=== PATIENT | male | born 1930 | race Caucasian/White ===

== ENCOUNTER 2018-11-22 08:27 | Day surgery (SDC) | payer MEDICARE, BC ==
[2018-11-22] MEDS ORDERED: fentaNYL 100 MCG/2 ML SDV IV ONE (08:28)
[2018-11-22] MEDS ORDERED: Midazolam 1 MG/ML 2 ML SDV IV ONE (08:28)
[2018-11-22] MEDS ORDERED: Lactated Ringers 1,000 ML IV PRN (08:30)
[2018-11-22] MEDS ORDERED: Sodium Chloride 0.9% 10 ML Syringe FLUSH PRN (08:30)
[2018-11-22 11:26] VITALS: BP 122/58; PULSE 58
--- NOTE | 2018-11-23 09:05 | OR ---
DATE OF OPERATION: 11/22/2018 SURGEON: Barby Ashraf MD PREOPERATIVE DIAGNOSIS: Visually significant cataract, left eye. POSTOPERATIVE DIAGNOSIS: Visually significant cataract, left eye. PROCEDURES PERFORMED: Phacoemulsification with intraocular lens placement, left eye. ASSISTANTS: None. ANESTHESIA: Local with sedation. COMPLICATIONS: None. BLOOD LOSS: None. IMPLANTS: Speedy AU00T0 21.0 diopter lens, serial number [id number], implanted. CDE: 5.04. DESCRIPTION OF PROCEDURE: After risks and benefits were reviewed with the patient, consent was obtained in the preoperative area, and the operative eye was marked with a surgical pen. In the preoperative area, a pledget was used to dilate the pupil consisting of a mixture of phenylephrine 10%, cyclopentolate 2%, moxifloxacin 0.5%, and bupivacaine 0.75%. The patient was taken to the operating room, where a time-out was performed, and the patient was placed under monitored anesthesia care. Topical tetracaine was used for anesthesia. The operative eye was prepped and draped for ophthalmic surgery, and the microscope was brought into position and focussed. A paracentesis incision was made, followed by injection of preservative-free 1% lidocaine into the anterior chamber, followed by injection of Viscoat into the anterior chamber. A microkeratome blade was used to make a corneal limbal incision temporarily. A cystotome was used to make the beginning of the capsulorrhexis, which was carried around 360 degrees in a curvilinear fashion using Utrata forceps. A Gonzales cannula with BSS was used to hydrodissect and hydrodelineate the nucleus. The nucleus was removed in a divide and conquer manner using phacoemulsification. Irrigation and aspiration were used to remove the remaining cortical material. Provisc was used to inflate the capsular bag, and a pre-loaded Speedy AU00T0 21.0 diopter lens, serial number [id number], was injected into the capsular bag. A Sinskey hook was used to position and center the lens. Next, irrigation and aspiration was used to remove any remaining viscoelastic and cortical material from the anterior chamber. BSS on a cannula was used to inflate the anterior chamber and hydrate the wound. The wound was checked and found to be watertight. 1 mg of Moxifloxacin was injected into the anterior chamber. Drapes were removed and the eye was cleaned. A drop of brimonidine 0.15% and a drop of TobraDex was placed. The eye was shielded, and the patient was taken to the recovery room in stable condition. /[id number] TERRENCE/ALEJANDRINA CC: RHODA RAMACHANDRAN PA-C MTDD
== END 2018-11-22 11:50 | disposition home or self-care (01) ==
LOC: FB.SDS 08:27
PROVIDERS: ATTEND Ophthalmology
DX: H25.9 Unspecified age-related cataract (principal); I11.0 Hypertensive heart disease with heart failure; I50.32 Chronic diastolic (congestive) heart failure; M19.90 Unspecified osteoarthritis, unspecified site; E78.5 Hyperlipidemia, unspecified; I25.118 Atherosclerotic heart disease of native coronary artery with other forms of angina pectoris; E66.9 Obesity, unspecified; Z79.899 Other long term (current) drug therapy; Z79.82 Long term (current) use of aspirin; Z88.6 Allergy status to analgesic agent; Z88.1 Allergy status to other antibiotic agents; Z87.891 Personal history of nicotine dependence; Z68.30 Body mass index [BMI] 30.0-30.9, adult
CPT/HCPCS: 00142; 66984; J2250; J3010; V2632

== ENCOUNTER 2018-12-20 06:57 | Day surgery (SDC) | payer MEDICARE, BC ==
[2018-12-20] MEDS ORDERED: fentaNYL 100 MCG/2 ML SDV IV ONE (06:58)
[2018-12-20] MEDS ORDERED: Ondansetron 4 MG/2 ML SDV IVPUSH ONE (06:58)
[2018-12-20] MEDS ORDERED: Sodium Chloride 0.9% 10 ML Syringe IV ONE (06:58)
[2018-12-20] MEDS ORDERED: Midazolam 1 MG/ML 2 ML SDV IV ONE (06:58)
[2018-12-20] MEDS: Sodium Chloride 0.9% 10 ML Syringe FLUSH PRN (07:35)
[2018-12-20 15:35] VITALS: BP 132/60; PULSE 58
--- NOTE | 2018-12-21 11:14 | OR ---
DATE OF OPERATION: 12/20/2018 SURGEON: Barby Ashraf MD PREOPERATIVE DIAGNOSIS: Visually significant cataract, right eye. POSTOPERATIVE DIAGNOSIS: Visually significant cataract, right eye. PROCEDURES PERFORMED: Phacoemulsification with intraocular lens placement, right eye. ASSISTANTS: None. ANESTHESIA: Local with sedation. COMPLICATIONS: None. BLOOD LOSS: None. IMPLANTS: Speedy AU00T0, 20.5 diopter lens implanted. CDE: 2.14. DESCRIPTION OF PROCEDURE: After risks and benefits were reviewed with the patient, consent was obtained in the preoperative area, and the operative eye was marked with a surgical pen. In the preoperative area, a pledget was used to dilate the pupil consisting of a mixture of phenylephrine 10%, cyclopentolate 2%, moxifloxacin 0.5%, and bupivacaine 0.75%. The patient was taken to the operating room, where a time-out was performed, and the patient was placed under monitored anesthesia care. Topical tetracaine was used for anesthesia. The operative eye was prepped and draped for ophthalmic surgery, and the microscope was brought into position and focussed. A paracentesis incision was made, followed by injection of preservative-free 1% lidocaine into the anterior chamber, followed by injection of Viscoat into the anterior chamber. A microkeratome blade was used to make a corneal limbal incision temporarily. A cystotome was used to make the beginning of the capsulorrhexis, which was carried around 360 degrees in a curvilinear fashion using Utrata forceps. A Gonzales cannula with BSS was used to hydrodissect and hydrodelineate the nucleus. The nucleus was removed in a divide and conquer manner using phacoemulsification. Irrigation and aspiration were used to remove the remaining cortical material. Provisc was used to inflate the capsular bag, and a pre-loaded Speedy AU00T0, 20.5 diopter lens, serial number [id number] was injected into the capsular bag. A Sinskey hook was used to position and center the lens. Next, irrigation and aspiration was used to remove any remaining viscoelastic and cortical material from the anterior chamber. BSS on a cannula was used to inflate the anterior chamber and hydrate the wound. The wound was checked and found to be watertight. 1 mg of Moxifloxacin was injected into the anterior chamber. Drapes were removed and the eye was cleaned. A drop of brimonidine 0.15% and a drop of TobraDex was placed. The eye was shielded, and the patient was taken to the recovery room in stable condition. /[id number] TERRENCE/JAYDENL CC: RHODA RAMACHANDRAN MD MTDD
== END 2018-12-20 09:36 | disposition home or self-care (01) ==
LOC: FB.SDS 06:57
PROVIDERS: ATTEND Ophthalmology
DX: H25.9 Unspecified age-related cataract (principal); I25.119 Atherosclerotic heart disease of native coronary artery with unspecified angina pectoris; I11.0 Hypertensive heart disease with heart failure; I50.9 Heart failure, unspecified; M19.90 Unspecified osteoarthritis, unspecified site; E78.5 Hyperlipidemia, unspecified; E66.9 Obesity, unspecified; Z68.30 Body mass index [BMI] 30.0-30.9, adult; Z88.1 Allergy status to other antibiotic agents; Z88.6 Allergy status to analgesic agent; Z79.899 Other long term (current) drug therapy; Z79.82 Long term (current) use of aspirin; Z79.51 Long term (current) use of inhaled steroids
CPT/HCPCS: 66984; J2250; J2405; J3010; V2632

== ENCOUNTER 2019-05-10 07:07 | Day surgery (SDC) | payer MEDICARE, BC ==
[~2019-05-10 07:07] MED LIST: Lactated Ringers 1,000 ML IV SCH
[2019-05-10] MEDS ORDERED: Lidocaine 2% 5 ML SDV INJECT ONE (07:08)
[2019-05-10] MEDS ORDERED: Propofol 200 MG/20 ML SDV IV ONE (07:08)
--- NOTE | 2019-05-10 09:34 | PCM.OPNOTE ---
- General Post-Op/Procedure Note Date of Surgery/Procedure: 05/10/19 Operative Procedure(s): 1. egd with cold forcep biopsy. 2. c scope with cold forcep biopsy Findings: 1. gastritis 2. diverticulosis of colon 3. colon polyp 3 ascending polyp 5 descending colon Pre Op Diagnosis: occult blood in stools Post-Op Diagnosis: 1. gastritis. 2. diverticulosis of colon. 3. colon polyp 3 ascending. polyp 5 descending colon Anesthesia Technique: [facility] Primary Surgeon: Immanuel Claros Anesthesia Provider: Kavya Rodas Pathology: stomach colon polyp 3 ascending polyp 5 descending colon Complications: None Condition: Good Free Text/Narrative:: see dictation
[2019-05-10 10:04] VITALS: BP 148/58; PULSE 51
--- NOTE | 2019-05-10 12:09 | OR ---
DATE OF OPERATION: 05/10/2019 SURGEON: Immanuel Claros MD PROCEDURE PERFORMED: Colonoscopy and upper endoscopy with cold forceps biopsy for both. PREOPERATIVE DIAGNOSIS: Occult blood in stools, history of melena. POSTOPERATIVE DIAGNOSES: Gastritis, ascending colon polyps x3 and descending colon polyps x5, as well as diffuse diverticulosis of the colon without obstruction or hemorrhage. INDICATIONS FOR PROCEDURE: This is an 88-year-old white male who was referred with the above noted issue of some occult blood in stool. On taking the patient's history, last summer he did have an episode of melena which spontaneously resolved. He is completely asymptomatic and essentially was offered and accepted an upper and lower endoscopy. DESCRIPTION OF OPERATION: After an excellent IV sedation was administered, the bite block was inserted. The flexible endoscope was passed without difficulty down the patient's esophagus into the stomach. The stomach was insufflated. Scope passed through the pylorus and slowly withdrawn. Following findings were noted. Duodenum, unremarkable. 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 Biopsies were taken of the antrum and along the greater curve photo was taken as well. The esophagus was unremarkable. Stomach was deflated and the scope was removed. Our attention was then turned to the rectum. Digital rectal exam was performed. No marked abnormality was noted. Flexible colonoscope was inserted and advanced to the cecum. Prep was excellent. The following findings were noted. Throughout the entire colon from the ascending colon to the sigmoid, diffuse diverticulosis was noted. In the ascending colon, there were a total of 3 polyps approximately 5 to 6 mm in size. These were biopsied with cold biopsy forceps and submitted in 1 container. Transverse colon was unremarkable. Descending colon demonstrated 5 polyps, 5 to 6 mm in size. These were biopsied with cold biopsy forceps and submitted for permanent. Sigmoid, unremarkable except for the diverticulosis, and rectum was unremarkable. The patient tolerated the procedure well and was taken to recovery room. /[id number] /MODL
== END 2019-05-10 10:20 | disposition home or self-care (01) ==
LOC: FB.SDS 07:07
PROVIDERS: ATTEND Surgery
DX: D12.2 Benign neoplasm of ascending colon (principal); D12.4 Benign neoplasm of descending colon; K29.71 Gastritis, unspecified, with bleeding; K57.31 Diverticulosis of large intestine without perforation or abscess with bleeding; N44.8 Other noninflammatory disorders of the testis; I11.0 Hypertensive heart disease with heart failure; I50.32 Chronic diastolic (congestive) heart failure; E78.5 Hyperlipidemia, unspecified; Z79.899 Other long term (current) drug therapy; Z79.82 Long term (current) use of aspirin; Z88.8 Allergy status to other drugs, medicaments and biological substances; Z90.49 Acquired absence of other specified parts of digestive tract; Z98.890 Other specified postprocedural states
CPT/HCPCS: 00813; 43239; 45380; 88305; 88342; J2001; J2704; J7120

== ENCOUNTER 2020-12-03 08:35 | Day surgery (SDC) | payer MEDICARE, BC ==
[~2020-12-03 08:35] MED LIST changes: +Sodium Chloride 0.9% 10 ML Syringe FLUSH PRN
[2020-12-03] MEDS ORDERED: Lidocaine 2% 5 ML SDV INJECT ONE (08:36)
[2020-12-03] MEDS ORDERED: Propofol 200 MG/20 ML SDV IV ONE (08:36)
--- NOTE | 2020-12-03 09:42 | PCM.HP.2 ---
H&P History of Present Illness - General Date of Service: 12/03/20 Admit Problem/Dx: Admission Diagnosis/Problem Admission Diagnosis/Problem Esophagogastroduodenoscopy Source of Information: Patient, Old Records History Limitations: Reports: No Limitations - History of Present Illness Initial Comments - Free Text/Narative: Here for EGD and Colonoscopy for Anemai and heme pos stool - Related Data Allergies/Adverse Reactions: Allergies Allergy/AdvReac Type Severity Reaction Status Date / Time sulindac Allergy Unknown facial Verified 12/02/20 16:41 edema, urticaria cefaclor Allergy Swelling Verified 12/02/20 16:41 Home Medications: Home Meds Arginine 1,000 mg PO BID 11/20/14 [History] Aspirin 81 mg PO DAILY 11/20/14 [History] Cholecalciferol (Vitamin D3) [Vitamin D3] 4,000 unit PO DAILY 11/20/14 [History] Furosemide 40 mg PO DAILY 11/20/14 [History] Gluc Castillo 2KCl/Chondr/Vit C/Juarez [Glucosamine-Chondr Complex] 1 tab PO BID 11/20/14 [History] Loperamide [Imodium] 4 mg PO TID PRN 11/20/14 [History] Omeprazole [Prilosec] 20 mg PO DAILY #30 capsule. 11/21/14 [Rx] Carboxymethyl/Glycerin/Poly80 [Refresh Optive Advanced Drops] 1 drop EYEBOTH QID 11/21/18 [History] Cyproheptadine HCl 4 mg PO TID 11/21/18 [History] Fluticasone Propionate [Flonase] 2 spray NASBOTH DAILY 11/21/18 [History] Turmeric Root Extract [Turmeric Curcumin] 1 cap PO BID 11/21/18 [History] allopurinoL [Zyloprim] 100 mg PO DAILY 11/21/18 [History] atorvaSTATin Calcium [Lipitor] 20 mg PO DAILY 11/21/18 [History] Acetaminophen [Tylenol Arthritis] 650 mg PO BID PRN 05/09/19 [History] DULoxetine [Cymbalta] 30 mg PO DAILY 05/09/19 [History] Glucosam/Chondr/Collagn/Hyalur [Glucosamine & Chondroitin Cap] 2 cap PO DAILY 05/09/19 [History] Melatonin 10 mg PO BEDTIME 05/09/19 [History] Ubidecarenone [Co Q10] 200 mg PO DAILY 05/09/19 [History] Valsartan 80 mg PO DAILY 05/09/19 [History] Cetirizine [ZyrTEC] 10 mg PO DAILY 12/02/20 [History] Potassium Chloride [Klor-Con 10] 10 meq PO DAILY 12/02/20 [History] Past Medical History HEENT History: Reports: Cataract, Hard of Hearing, Impaired Vision, Other (See Below) Other HEENT History: VITREOUS DEGENERATION,. PRE-GLAUCOMA Cardiovascular History: Reports: CAD, Heart Failure, High Cholesterol, Hypertension Respiratory History: Reports: SOB Gastrointestinal History: Reports: Helicobacter Pylori Genitourinary History: Reports: Prostate Disorder, Other (See Below) Other Genitourinary History: TESTICULAR HYPOFUNCTION Musculoskeletal History: Reports: Osteoarthritis Neurological History: Reports: None Psychiatric History: Reports: None Endocrine/Metabolic History: Reports: Obesity/BMI 30+ Hematologic History: Reports: None Immunologic History: Reports: None Oncologic (Cancer) History: Reports: None Dermatologic History: Reports: None - Infectious Disease History Infectious Disease History: Reports: Chicken Pox, Measles, Mumps, Shingles - Past Surgical History Head Surgeries/Procedures: Reports: None HEENT Surgical History: Reports: Adenoidectomy, Cataract Surgery, Tonsillectomy Cardiovascular Surgical History: Reports: Carotid Stents Respiratory Surgical History: Reports: None GI Surgical History: Reports: Cholecystectomy Other Female Surgeries/Procedures: HYDROCELECTOMY BILAT Male Surgical History: Reports: Other (See Below) Endocrine Surgical History: Reports: None Neurological Surgical History: Reports: None Oncologic Surgical History: Reports: None Dermatological Surgical History: Reports: None Social & Family History - Family History Family Medical History: No Pertinent Family History - Tobacco Use Tobacco Use Status *Q: Former Tobacco User Used Tobacco, but Quit: No - Caffeine Use Caffeine Use: Reports: Soda - Recreational Drug Use Recreational Drug Use: No Drug Use in Last 12 Months: No H&P Review of Systems - Review of Systems: Review Of Systems: Comprehensive ROS is negative, except as noted in HPI. Exam - Exam Exam: See Below - Vital Signs Weight: 89.358 kg - Exam General: Alert, Oriented Lungs: Clear to Auscultation, Normal Respiratory Effort Cardiovascular: Regular Rate, Regular Rhythm GI/Abdominal Exam: Soft, Non-Tender Problem List Initiated/Reviewed/Updated: Yes Orders Last 24hrs: Active Orders 24 hr Category Date Time Status Patient Status [ADT] Routine ADT 12/03/20 08:30 Ordered Patient to Empty Bladder [RC] ASDIRECTED Care 12/03/20 08:30 Active Verify Patient Consent Obtain [RC] ASDIRECTED Care 12/03/20 08:30 Active Nothing Per Oral Diet [DIET] Diet 12/03/20 Breakfast Ordered Lactated Ringers [Ringers, Lactated] 1,000 ml Med 12/03/20 08:30 Active IV ASDIRECTED Sodium Chloride 0.9% [Saline Flush] Med 12/03/20 08:30 Active 10 ml FLUSH ASDIRECTED PRN Peripheral IV Insertion Adult [OM.PC] Routine Oth 12/03/20 08:30 Ordered Resuscitation Status Routine Resus Stat 12/02/20 16:52 Ordered Medication Orders Lactated Ringer's (Ringers, Lactated) 1,000 mls @ 125 mls/hr IV ASDIRECTED SUJEY Last Admin: 12/03/20 09:27 Dose: 125 mls/hr Documented by: JOSE CARLOS Sodium Chloride (Sodium Chloride 0.9% 10 Ml Syringe) 10 ml FLUSH ASDIRECTED PRN PRN Reason: Keep Vein Open Assessment/Plan Comment:: Anemai, heme pos stool Ok to proceed with EGD and Colonoscopy, consent obtained
--- NOTE | 2020-12-03 10:14 | PCM.OPNOTE ---
- General Post-Op/Procedure Note Date of Surgery/Procedure: 12/03/20 Operative Procedure(s): EGD wit Bx, colonoscopy Findings: Gastritis, diverticulosis Pre Op Diagnosis: Anemai, heme pos Post-Op Diagnosis: Same Anesthesia Technique: ELIF Primary Surgeon: Jason Irvin Anesthesia Provider: Kavya Rodas Complications: None Condition: Good
[2020-12-03 14:30] VITALS: BP 134/48; PULSE 56
--- NOTE | 2020-12-03 15:00 | OR ---
DATE OF OPERATION: 12/03/2020 SURGEON: Jason Irvin MD PREOPERATIVE DIAGNOSIS: Anemia with Hemoccult-positive stool. POSTOPERATIVE DIAGNOSES: 1. Mild gastritis of the antrum. 2. Diverticulosis. PROCEDURES: 1. Esophagogastroduodenoscopy with biopsy. 2. Colonoscopy. ANESTHESIA: IV sedation. PROCEDURE IN DETAIL: The patient was brought to the procedure room where he was placed on his left side and IV sedation administered. Oral bite- block was placed and the upper endoscope advanced into the esophagus under direct vision without difficulty. Vocal cords were viewed and were normal. The scope was passed to the second portion of the duodenum. The duodenum and pylorus were normal. Antrum had some mild gastritis just proximal to the pyloric opening. No ulcers or erosions were present. I did take 2 biopsies and sent for pathology review. The body and fundus were normal. Retroflexion was normal. The squamocolumnar junction was normal. There was no hiatal hernia. Air was removed from the stomach and the scope withdrawn through the remaining esophagus which appears normal. The patient tolerated this portion of the procedure well. Next, colonoscopy was performed after digital rectal exam was done which was normal. The colonoscope was inserted and advanced to the level of the cecum without difficulty. Cecal position was confirmed by identifying the appendiceal lumen and ileocecal valve. Prep was good and surfaces were well visualized. Upon withdrawing the scope, the ascending, transverse, and descending colon had scattered large diverticula throughout. The sigmoid colon had multiple large diverticula throughout. Rectum was normal and retroflexion was normal. Air was removed and the scope withdrawn. The patient tolerated the procedure well and returned to recovery in stable condition. I will have the patient followup with Dr. Vera next week for review of pathology report to determine if any further evaluation is necessary. No further colon screening is necessary due to the patient's age. /[id number] TIA/ALEJANDRINA
== END 2020-12-03 11:22 | disposition home or self-care (01) ==
LOC: FB.SDS 08:35
PROVIDERS: ATTEND Surgery
DX: K57.30 Diverticulosis of large intestine without perforation or abscess without bleeding (principal); K29.40 Chronic atrophic gastritis without bleeding; K31.A21 Gastric intestinal metaplasia with low grade dysplasia; D64.9 Anemia, unspecified; E66.9 Obesity, unspecified; Z98.890 Other specified postprocedural states; Z88.8 Allergy status to other drugs, medicaments and biological substances; Z79.899 Other long term (current) drug therapy; Z79.82 Long term (current) use of aspirin; Z87.891 Personal history of nicotine dependence
CPT/HCPCS: 00813-QZ; 88305; 88342; J2704; J7120

== ENCOUNTER 2022-04-24 15:56 | Emergency (ER) | payer MEDICARE, BC, OTHER ==
[2022-04-24 16:31] LABS: ESTIMATED GFR 28 mL/min (>60)
[2022-04-24 18:18] VITALS: BP 135/56; PULSE 70
== END 2022-04-24 17:13 | disposition home or self-care (01) ==
LOC: FB.ED 15:56
DX: E86.0 Dehydration (principal); I13.0 Hypertensive heart and chronic kidney disease with heart failure and stage 1 through stage 4 chronic kidney disease, or unspecified chronic kidney disease; N18.9 Chronic kidney disease, unspecified; I50.9 Heart failure, unspecified; D63.1 Anemia in chronic kidney disease; I25.10 Atherosclerotic heart disease of native coronary artery without angina pectoris; E78.00 Pure hypercholesterolemia, unspecified; M19.90 Unspecified osteoarthritis, unspecified site; E66.9 Obesity, unspecified; Z68.28 Body mass index [BMI] 28.0-28.9, adult; Z88.1 Allergy status to other antibiotic agents; Z88.6 Allergy status to analgesic agent; Z79.82 Long term (current) use of aspirin; Z79.899 Other long term (current) drug therapy
CPT/HCPCS: 36415; 71045; 80053; 84484; 85025; 93005; 99285